=== PATIENT | male | born 1975 | race African-American/Black ===

== ENCOUNTER 2017-01-30 16:43 | Emergency (ER) | payer MEDICAID ==
[~2017-01-30] VITALS: Ht 182.9 cm; Wt 120.0 kg
[2017-01-30] MEDS ORDERED: SODIUM CHLORIDE 0.9% 1,000 ML IV ONE (16:53)
[2017-01-30 17:31] LABS: BG BASE EXCESS -0.6 mmol/L (-2.0-2.0); BG CARBOXYHEMOGLOBIN 0.4 % (0.5-1.5); BG DEOXYHEMOGLOBIN 13.8 % (0.0-5.0); BG FRACTION INSPIRED OXYGEN 21; BG HCO3 ACT 23.9 mmol/L (22.0-26.0); BG METHEMOGLOBIN 0.1 % (0.0-1.5); BG OXYGEN SATURATION 86.1 % (92.0-98.5); BG OXYHEMOGLOBIN 85.7 % (94.0-97.0); BG PCO2 38.8 mmHg (35.0-45.0); BG PH 7.407 (7.350-7.450); BG PO2 52.7 mmHg (75.0-100.0); BG SAMPLE SITE RIGHT RADIAL; BG VENT MODE ROOM AIR
[2017-01-30 17:43] LABS: BASOPHILS % 0.3 % (0.0-2.0); HEMOGLOBIN. 12.4 g/dL (14.0-18.0); MEAN CORPUSCULAR HEMOGLOBIN 30.4 pg (28.0-32.0); MEAN CORPUSCULAR HGB CONC 35.4 g/dL (31.0-37.0); MEAN CORPUSCULAR VOLUME 85.9 fL (80.0-94.0); MEAN PLATELET VOLUME 7.5 fl (7.4-10.4); MONOCYTES % 7.7 % (2.0-8.0); PLATELET 250 x1000/uL (130-400); RED BLOOD CELL COUNT 4.08 mill/uL (4.7-6.1); RED CELL DISTRIBUTION WIDTH 14.8 % (11.6-14.6); WHITE BLOOD COUNT 8.8 x1000/uL (4.5-11.0)
[2017-01-30 17:48] LABS: PARTIAL THROMBOPLASTIN TIME 25.7 sec (24.0-34.0); PROTHROMBIN TIME 10.8 sec
[2017-01-30 17:49] LABS: ALBUMIN 3.6 g/dL (3.4-5.0); ANION GAP 15; CALCIUM 8.5 mg/dL (8.5-10.1); CARBON DIOXIDE 27 mEq/L (21-32); CHLORIDE 91 mEq/L (98-107); ETHANOL BLOOD < 10 mg/dL; INDEX HEMOLYSI 1 (1-3); INDEX ICTERIC 1 (1-4); INDEX LIPEMIC 1 (1-3); UREA NITROGEN BLOOD 10 mg/dL (7-21)
[2017-01-30 17:51] LABS: AMMONIA 31 uMol/L (<32)
[2017-01-30 17:56] LABS: ACETAMINOPHEN < 2 ug/mL (10-30); ALANINE AMINOTRANSFERASE 30 IU/L (13-61); CREATINE KINASE 885 IU/L (39-308); NT PRO B-TYPE NATRIURETIC PEP 2723 pg/mL (5-125); TROPONIN I 0.19 ng/mL (0.00-0.04); eGFR > 60 mL/min (>60)
[2017-01-30 18:01] LABS: THYROID STIMULATING HORMONE 0.61 uIU/mL (0.36-3.74)
[2017-01-30] MEDS ORDERED: LORAZEPAM 2MG/ML CPJ IV ONE ×2 (18:45→22:15)
[2017-01-30] MEDS ORDERED: SODIUM CHLORIDE 0.9% 1000ML BAG (SEPSIS BOLUS) IV ONE (19:30)
[2017-01-30] MEDS ORDERED: ASPIRIN 300MG SUPP PR ONE (19:30)
[2017-01-30 20:20] LABS: GLUCOSE URINE NEGATIVE (NEGATIVE); KETONES URINE NEGATIVE (NEGATIVE); LEUKOCYTE ESTERASE URINE NEGATIVE (NEGATIVE); NITRITE URINE NEGATIVE (NEGATIVE); OCCULT BLOOD URINE NEGATIVE (NEGATIVE); PH URINE 6.5 (4.5-8.0); PROTEIN URINE NEGATIVE (NEGATIVE); SPECIFIC GRAVITY URINE 1.003 (1.005-1.030); UROBILINOGEN URINE 0.2 E.U./dL (0.2-1.0)
[2017-01-30 20:21] LABS: CLARITY URINE CLEAR (CLEAR); COLOR URINE YELLOW (YELLOW)
[2017-01-30 20:37] LABS: *AMPHETAMINES SCREEN URINE NEGATIVE (NEGATIVE); *BARBITURATES SCREEN URINE NEGATIVE (NEGATIVE); *BENZODIAZEPINES SCREEN URINE PRESUMTIVE POSITIVE (NEGATIVE); *COCAINE SCREEN URINE NEGATIVE (NEGATIVE); CANNABINOID URINE SCREEN NEGATIVE (NEGATIVE); ECSTASY MDMA SCREEN URINE NEGATIVE (NEGATIVE); METHADONE URINE SCREEN NEGATIVE (NEGATIVE); OPIATES URINE SCREEN NEGATIVE (NEGATIVE); PHENCYCLIDINE URINE SCREEN PRESUMTIVE POSITIVE (NEGATIVE)
[2017-01-31] MEDS ORDERED: DEXT 5%/0.45% NACL KCL 20MEQ/L 1,000 ML IV SCH (02:00)
[2017-01-31 05:55] LABS: CHLORIDE 98 mEq/L (98-107); INDEX HEMOLYSI 1 (1-3); INDEX ICTERIC 1 (1-4); INDEX LIPEMIC 1 (1-3)
[2017-01-31 06:03] LABS: ALBUMIN 3.3 g/dL (3.4-5.0); ANION GAP 12; CALCIUM 8.3 mg/dL (8.5-10.1); CARBON DIOXIDE 27 mEq/L (21-32); eGFR > 60 mL/min (>60)
[2017-01-31 06:19] LABS: ALANINE AMINOTRANSFERASE 29 IU/L (13-61); UREA NITROGEN BLOOD 9 mg/dL (7-21)
[2017-01-31 06:22] LABS: BASOPHILS % 0.3 % (0.0-2.0); EOSINOPHILS % 0.1 % (0.0-5.0); HEMATOCRIT. 37.8 % (42.0-52.0); HEMOGLOBIN. 13.2 g/dL (14.0-18.0); LYMPHOCYTES % 9.6 % (20.0-50.0); MEAN CORPUSCULAR HEMOGLOBIN 30.2 pg (28.0-32.0); MEAN CORPUSCULAR VOLUME 86.4 fL (80.0-94.0); MEAN PLATELET VOLUME 7.6 fl (7.4-10.4); MONOCYTES % 8.7 % (2.0-8.0); NEUTROPHILS % 81.3 % (40.0-76.0); PLATELET 245 x1000/uL (130-400); RED BLOOD CELL COUNT 4.38 mill/uL (4.7-6.1); RED CELL DISTRIBUTION WIDTH 14.8 % (11.6-14.6); WHITE BLOOD COUNT 10.9 x1000/uL (4.5-11.0)
[2017-01-31] MEDS ORDERED: OMEPRAZOLE 20MG CAPSULE EXTENDED RELEASE PO SCH (07:50)
[2017-01-31 09:00] VITALS: BP 138/93
== END 2017-01-31 11:18 | disposition left against medical advice (07) ==
LOC: ER 16:43
DX: F16.129 Hallucinogen abuse with intoxication, unspecified (principal); F16.10 Hallucinogen abuse, uncomplicated; M62.82 Rhabdomyolysis; R79.89 Other specified abnormal findings of blood chemistry; R61 Generalized hyperhidrosis; F17.290 Nicotine dependence, other tobacco product, uncomplicated
CPT/HCPCS: 36415; 36600; 70450; 71010; 72125; 80053; 80305; 80307; 80329; 81003; 82140; 82375; 82550; 82805; 83880; 84443; 84484; 85025; 85610; 85730; 86850; 86900; 86901; 93005; 96361; 96374; 96376; 99285; G0482; J2060; J7030; Z7610

== ENCOUNTER 2017-02-10 03:15 | Emergency (ER) | payer MEDICAID ==
[~2017-02-10] VITALS: Ht 182.9 cm; Wt 102.0 kg
[2017-02-10 06:16] LABS: BASOPHILS % 0.2 % (0.0-2.0); EOSINOPHILS % 0.1 % (0.0-5.0); HEMATOCRIT. 34.8 % (42.0-52.0); HEMOGLOBIN. 12.1 g/dL (14.0-18.0); LYMPHOCYTES % 9.2 % (20.0-50.0); MEAN CORPUSCULAR HEMOGLOBIN 30.3 pg (28.0-32.0); MEAN CORPUSCULAR HGB CONC 34.6 g/dL (31.0-37.0); MEAN CORPUSCULAR VOLUME 87.5 fL (80.0-94.0); MEAN PLATELET VOLUME 7.3 fl (7.4-10.4); MONOCYTES % 6.6 % (2.0-8.0); NEUTROPHILS % 83.9 % (40.0-76.0); PLATELET 257 x1000/uL (130-400); RED BLOOD CELL COUNT 3.98 mill/uL (4.7-6.1); RED CELL DISTRIBUTION WIDTH 15.2 % (11.6-14.6); WHITE BLOOD COUNT 12.3 x1000/uL (4.5-11.0)
[2017-02-10 06:17] LABS: CHLORIDE 103 mEq/L (98-107); INDEX HEMOLYSI 1 (1-3); INDEX ICTERIC 1 (1-4); INDEX LIPEMIC 1 (1-3)
[2017-02-10 06:23] LABS: ACETAMINOPHEN < 2 ug/mL (10-30); ANION GAP 12; CALCIUM 8.7 mg/dL (8.5-10.1); CARBON DIOXIDE 27 mEq/L (21-32); ETHANOL BLOOD < 10 mg/dL; UREA NITROGEN BLOOD 9 mg/dL (7-21); eGFR > 60 mL/min (>60)
[2017-02-10 07:00] LABS: *AMPHETAMINES SCREEN URINE NEGATIVE (NEGATIVE); *BARBITURATES SCREEN URINE NEGATIVE (NEGATIVE); *BENZODIAZEPINES SCREEN URINE NEGATIVE (NEGATIVE); *COCAINE SCREEN URINE NEGATIVE (NEGATIVE); CANNABINOID URINE SCREEN NEGATIVE (NEGATIVE); ECSTASY MDMA SCREEN URINE NEGATIVE (NEGATIVE); METHADONE URINE SCREEN NEGATIVE (NEGATIVE); OPIATES URINE SCREEN NEGATIVE (NEGATIVE); PHENCYCLIDINE URINE SCREEN PRESUMTIVE POSITIVE (NEGATIVE)
[2017-02-10 15:38] VITALS: BP 141/94
== END 2017-02-10 19:03 | disposition home or self-care (01) ==
LOC: ER 03:16
DX: T40.991A Poisoning by other psychodysleptics [hallucinogens], accidental (unintentional), initial encounter (principal); R41.82 Altered mental status, unspecified; F91.8 Other conduct disorders; Z78.1 Physical restraint status; Y92.488 Other paved roadways as the place of occurrence of the external cause
CPT/HCPCS: 36415; 80048; 80305; 80307; 80329; 85025; 99284; G0482; X7700; Z7610

== ENCOUNTER 2017-02-24 05:59 | Emergency (ER) | payer MEDICAID ==
[~2017-02-24] VITALS: Ht 177.8 cm; Wt 86.0 kg
[2017-02-24] MEDS ORDERED: OLANZAPINE 10 MG/VIAL IM STA (07:29)
[2017-02-24] MEDS ORDERED: LORAZEPAM 2MG/ML CPJ IV STA (07:29)
[2017-02-24] MEDS ORDERED: SODIUM CHLORIDE 0.9% 1,000 ML IV ONE (07:29)
[2017-02-24 07:50] LABS: BASOPHILS % 0.5 % (0.0-2.0); EOSINOPHILS % 0.3 % (0.0-5.0); HEMATOCRIT. 38.6 % (42.0-52.0); HEMOGLOBIN. 13.4 g/dL (14.0-18.0); LYMPHOCYTES % 14.4 % (20.0-50.0); MEAN CORPUSCULAR HEMOGLOBIN 30.3 pg (28.0-32.0); MEAN CORPUSCULAR VOLUME 87.5 fL (80.0-94.0); MEAN PLATELET VOLUME 7.6 fl (7.4-10.4); NEUTROPHILS % 77.8 % (40.0-76.0); PLATELET 288 x1000/uL (130-400); RED BLOOD CELL COUNT 4.42 mill/uL (4.7-6.1); RED CELL DISTRIBUTION WIDTH 14.7 % (11.6-14.6)
[2017-02-24 07:54] LABS: CHLORIDE 104 mEq/L (98-107)
[2017-02-24 08:03] LABS: CARBON DIOXIDE 29 mEq/L (21-32); ETHANOL BLOOD < 10 mg/dL
[2017-02-24 10:17] LABS: CLARITY URINE CLEAR (CLEAR); COLOR URINE YELLOW (YELLOW); GLUCOSE URINE NEGATIVE (NEGATIVE); KETONES URINE NEGATIVE (NEGATIVE); LEUKOCYTE ESTERASE URINE NEGATIVE (NEGATIVE); NITRITE URINE NEGATIVE (NEGATIVE); OCCULT BLOOD URINE NEGATIVE (NEGATIVE); PROTEIN URINE NEGATIVE (NEGATIVE); SPECIFIC GRAVITY URINE 1.006 (1.005-1.030); UROBILINOGEN URINE 0.2 E.U./dL (0.2-1.0)
[2017-02-24 10:54] LABS: *AMPHETAMINES SCREEN URINE NEGATIVE (NEGATIVE); *BARBITURATES SCREEN URINE NEGATIVE (NEGATIVE); *BENZODIAZEPINES SCREEN URINE NEGATIVE (NEGATIVE); *COCAINE SCREEN URINE NEGATIVE (NEGATIVE); CANNABINOID URINE SCREEN NEGATIVE (NEGATIVE); METHADONE URINE SCREEN NEGATIVE (NEGATIVE); OPIATES URINE SCREEN NEGATIVE (NEGATIVE); PHENCYCLIDINE URINE SCREEN PRESUMTIVE POSITIVE (NEGATIVE)
[2017-02-24] MEDS ORDERED: LORAZEPAM 1MG TABLET PO ONE (17:15)
[2017-02-24 17:35] VITALS: BP 172/101
== END 2017-02-24 17:51 | disposition home or self-care (01) ==
LOC: ER 06:10
DX: T40.991A Poisoning by other psychodysleptics [hallucinogens], accidental (unintentional), initial encounter (principal); R44.0 Auditory hallucinations; F16.188 Hallucinogen abuse with other hallucinogen-induced disorder; F10.10 Alcohol abuse, uncomplicated; Y92.89 Other specified places as the place of occurrence of the external cause; F17.210 Nicotine dependence, cigarettes, uncomplicated
CPT/HCPCS: 36415; 80053; 80305; 81003; 85025; 96361; 96372; 96374; 99285; G0482; J2060; J3490; Z7610; J7030

== ENCOUNTER 2017-03-02 01:08 | Emergency (ER) | payer MEDICAID ==
[~2017-03-02] VITALS: Ht 188 cm; Wt 100.0 kg
[2017-03-02] MEDS ORDERED: SODIUM CHLORIDE 0.9% 1,000 ML IV ONE (01:30)
[2017-03-02] MEDS ORDERED: DIPHENHYDRAMINE 50MG/ML VIAL IV ONE (04:00)
[2017-03-02] MEDS ORDERED: LORAZEPAM 2MG/ML CPJ IV ONE (04:00)
[2017-03-02 12:32] VITALS: BP 131/72
== END 2017-03-02 12:49 | disposition home or self-care (01) ==
LOC: ER 01:08
DX: T65.891A Toxic effect of other specified substances, accidental (unintentional), initial encounter (principal); Z88.8 Allergy status to other drugs, medicaments and biological substances; Y92.89 Other specified places as the place of occurrence of the external cause
CPT/HCPCS: 96361; 96374; 96375; 99285; J1200; J2060; J7030; Z7610

== ENCOUNTER 2017-03-06 02:10 | Emergency (ER) | payer MEDICAID ==
[2017-03-06 06:42] LABS: CARBON DIOXIDE 26 mEq/L (21-32); CHLORIDE 108 mEq/L (98-107); ETHANOL BLOOD < 10 mg/dL
[2017-03-06 06:48] LABS: BASOPHILS % 0.8 % (0.0-2.0); EOSINOPHILS % 0.6 % (0.0-5.0); HEMATOCRIT. 35.7 % (42.0-52.0); HEMOGLOBIN. 12.4 g/dL (14.0-18.0); LYMPHOCYTES % 18.9 % (20.0-50.0); MEAN CORPUSCULAR HEMOGLOBIN 30.3 pg (28.0-32.0); MEAN CORPUSCULAR VOLUME 87.2 fL (80.0-94.0); MEAN PLATELET VOLUME 7.4 fl (7.4-10.4); MONOCYTES % 7.4 % (2.0-8.0); NEUTROPHILS % 72.3 % (40.0-76.0); PLATELET 267 x1000/uL (130-400); RED BLOOD CELL COUNT 4.09 mill/uL (4.7-6.1); RED CELL DISTRIBUTION WIDTH 14.3 % (11.6-14.6)
[2017-03-06 07:35] LABS: *AMPHETAMINES SCREEN URINE NEGATIVE (NEGATIVE); *BARBITURATES SCREEN URINE NEGATIVE (NEGATIVE); *BENZODIAZEPINES SCREEN URINE NEGATIVE (NEGATIVE); *COCAINE SCREEN URINE NEGATIVE (NEGATIVE); CANNABINOID URINE SCREEN NEGATIVE (NEGATIVE); METHADONE URINE SCREEN NEGATIVE (NEGATIVE); OPIATES URINE SCREEN NEGATIVE (NEGATIVE); PHENCYCLIDINE URINE SCREEN PRESUMTIVE POSITIVE (NEGATIVE)
[2017-03-06 14:25] VITALS: BP 128/79
== END 2017-03-06 16:35 | disposition left against medical advice (07) ==
LOC: ER 02:10
DX: F20.0 Paranoid schizophrenia (principal); T40.991A Poisoning by other psychodysleptics [hallucinogens], accidental (unintentional), initial encounter; Y93.89 Activity, other specified; Y99.9 Unspecified external cause status; Y92.89 Other specified places as the place of occurrence of the external cause
CPT/HCPCS: 36415; 80048; 80305; 80307; 80329; 85025; 99284; G0482

== ENCOUNTER 2017-03-13 19:17 | Emergency (ER) | payer MEDICAID ==
[~2017-03-13] VITALS: Ht 185.4 cm; Wt 102.0 kg
[2017-03-13 19:19] VITALS: BP 146/88
== END 2017-03-13 21:00 | disposition left against medical advice (07) ==
LOC: ER 20:37
DX: Z53.21 Procedure and treatment not carried out due to patient leaving prior to being seen by health care provider (principal)

== ENCOUNTER 2017-03-13 21:14 | Emergency (ER) | payer MEDICAID ==
[~2017-03-13] VITALS: Ht 177.8 cm; Wt 104.0 kg
[2017-03-13] MEDS ORDERED: SODIUM CHLORIDE 0.9% 1,000 ML IV ONE (23:06)
[2017-03-13] MEDS ORDERED: DIPHENHYDRAMINE 50MG/ML VIAL IV ONE (23:15)
[2017-03-13] MEDS ORDERED: LORAZEPAM 2MG/ML CPJ IV ONE (23:15)
[2017-03-13] MEDS ORDERED: ONDANSETRON HCL 4MG/2ML VIAL IV ONE (23:15)
[2017-03-13] MEDS ORDERED: OLANZAPINE 10 MG/VIAL IM ONE (23:15)
[2017-03-13 23:31] LABS: BASOPHILS % 0.3 % (0.0-2.0); EOSINOPHILS % 0.1 % (0.0-5.0); HEMATOCRIT. 34.7 % (42.0-52.0); HEMOGLOBIN. 12.1 g/dL (14.0-18.0); LYMPHOCYTES % 12.1 % (20.0-50.0); MEAN CORPUSCULAR HEMOGLOBIN 29.7 pg (28.0-32.0); MEAN CORPUSCULAR VOLUME 85.5 fL (80.0-94.0); MEAN PLATELET VOLUME 7.6 fl (7.4-10.4); MONOCYTES % 6.9 % (2.0-8.0); NEUTROPHILS % 80.6 % (40.0-76.0); PLATELET 253 x1000/uL (130-400); RED BLOOD CELL COUNT 4.06 mill/uL (4.7-6.1); RED CELL DISTRIBUTION WIDTH 14.2 % (11.6-14.6)
[2017-03-13 23:34] LABS: CHLORIDE 104 mEq/L (98-107)
[2017-03-13 23:43] LABS: CARBON DIOXIDE 28 mEq/L (21-32); ETHANOL BLOOD < 10 mg/dL
[2017-03-14 00:32] LABS: *AMPHETAMINES SCREEN URINE NEGATIVE (NEGATIVE); *BARBITURATES SCREEN URINE NEGATIVE (NEGATIVE); *BENZODIAZEPINES SCREEN URINE NEGATIVE (NEGATIVE); *COCAINE SCREEN URINE NEGATIVE (NEGATIVE); CANNABINOID URINE SCREEN NEGATIVE (NEGATIVE); METHADONE URINE SCREEN NEGATIVE (NEGATIVE); OPIATES URINE SCREEN NEGATIVE (NEGATIVE); PHENCYCLIDINE URINE SCREEN PRESUMTIVE POSITIVE (NEGATIVE)
[2017-03-14 09:55] VITALS: BP 139/78
== END 2017-03-14 10:11 | disposition home or self-care (01) ==
LOC: ER 22:37
DX: T40.991A Poisoning by other psychodysleptics [hallucinogens], accidental (unintentional), initial encounter (principal); F12.10 Cannabis abuse, uncomplicated; Y92.89 Other specified places as the place of occurrence of the external cause
CPT/HCPCS: 36415; 80053; 80305; 80307; 80329; 85025; 96361; 96372; 96374; 96375; 99291; G0482; J1200; J2060; J2405; J3490; J7030; Z7610

== ENCOUNTER 2017-03-19 21:27 | Emergency (ER) | payer MEDICAID ==
[~2017-03-19] VITALS: Ht 182.9 cm; Wt 95.0 kg
[2017-03-20 02:04] VITALS: BP 128/76
== END 2017-03-20 04:21 | disposition home or self-care (01) ==
LOC: ER 21:49
DX: Z00.8 Encounter for other general examination (principal); F20.9 Schizophrenia, unspecified; F31.9 Bipolar disorder, unspecified; F17.210 Nicotine dependence, cigarettes, uncomplicated; F16.10 Hallucinogen abuse, uncomplicated
CPT/HCPCS: 99283

== ENCOUNTER 2017-04-03 03:45 | Emergency (ER) | payer MEDICAID ==
[~2017-04-03] VITALS: Ht 182.9 cm; Wt 91.0 kg
[2017-04-03] MEDS ORDERED: IBUPROFEN 600MG TABLET PO ONE (04:00)
[2017-04-03 04:06] VITALS: BP 174/100
== END 2017-04-03 04:36 | disposition home or self-care (01) ==
LOC: ER 03:54
DX: R51 Headache (principal)
CPT/HCPCS: 99283; Z7610

== ENCOUNTER 2017-04-03 04:40 | Emergency (ER) | payer MEDICAID ==
[~2017-04-03] VITALS: Ht 177.8 cm; Wt 100.0 kg
[2017-04-03] MEDS ORDERED: IBUPROFEN 600MG TABLET PO ONE (09:15)
[2017-04-03 10:12] VITALS: BP 125/84
== END 2017-04-03 10:15 | disposition home or self-care (01) ==
LOC: ER 04:41
DX: B35.3 Tinea pedis (principal); F16.10 Hallucinogen abuse, uncomplicated
CPT/HCPCS: 99283

== ENCOUNTER 2017-04-05 04:04 | Emergency (ER) | payer MEDICAID ==
[~2017-04-05] VITALS: Ht 182.9 cm; Wt 95.0 kg
[2017-04-05 09:30] VITALS: BP 126/96
[2017-04-05] MEDS ORDERED: ACETAMINOPHEN 500MG TABLET PO ONE (10:00)
== END 2017-04-05 10:03 | disposition home or self-care (01) ==
LOC: ER 04:07
DX: B35.3 Tinea pedis (principal); R51 Headache; F16.10 Hallucinogen abuse, uncomplicated
CPT/HCPCS: 99283

== ENCOUNTER 2017-04-08 05:38 | Emergency (ER) | payer MEDICAID ==
[~2017-04-08] VITALS: Ht 180.3 cm; Wt 96.0 kg
[2017-04-08 06:59] LABS: BASOPHILS % 0.4 % (0.0-2.0); EOSINOPHILS % 0.5 % (0.0-5.0); HEMATOCRIT. 36.6 % (42.0-52.0); HEMOGLOBIN. 12.9 g/dL (14.0-18.0); LYMPHOCYTES % 22.3 % (20.0-50.0); MEAN CORPUSCULAR HEMOGLOBIN 30.1 pg (28.0-32.0); MEAN CORPUSCULAR VOLUME 85.3 fL (80.0-94.0); MEAN PLATELET VOLUME 7.5 fl (7.4-10.4); MONOCYTES % 9.4 % (2.0-8.0); NEUTROPHILS % 67.4 % (40.0-76.0); PLATELET 259 x1000/uL (130-400); RED BLOOD CELL COUNT 4.29 mill/uL (4.7-6.1); RED CELL DISTRIBUTION WIDTH 14.5 % (11.6-14.6)
[2017-04-08 07:10] LABS: CARBON DIOXIDE 29 mEq/L (21-32); CHLORIDE 106 mEq/L (98-107); ETHANOL BLOOD < 10 mg/dL
[2017-04-08 08:09] LABS: *AMPHETAMINES SCREEN URINE NEGATIVE (NEGATIVE); *BARBITURATES SCREEN URINE NEGATIVE (NEGATIVE); *BENZODIAZEPINES SCREEN URINE NEGATIVE (NEGATIVE); *COCAINE SCREEN URINE NEGATIVE (NEGATIVE); CANNABINOID URINE SCREEN NEGATIVE (NEGATIVE); METHADONE URINE SCREEN NEGATIVE (NEGATIVE); OPIATES URINE SCREEN NEGATIVE (NEGATIVE); PHENCYCLIDINE URINE SCREEN PRESUMTIVE POSITIVE (NEGATIVE)
[2017-04-08 10:23] VITALS: BP 132/85
== END 2017-04-08 11:07 | disposition home or self-care (01) ==
LOC: ER 05:47
DX: T40.991A Poisoning by other psychodysleptics [hallucinogens], accidental (unintentional), initial encounter (principal); G92 Toxic encephalopathy; F20.0 Paranoid schizophrenia; F17.210 Nicotine dependence, cigarettes, uncomplicated; Y92.018 Other place in single-family (private) house as the place of occurrence of the external cause
CPT/HCPCS: 36415; 80048; 80305; 85025; 99284; G0482

== ENCOUNTER 2017-04-09 01:17 | Emergency (ER) | payer MEDICAID ==
[~2017-04-09] VITALS: Ht 177.8 cm; Wt 81.0 kg
[2017-04-09] MEDS ORDERED: LORAZEPAM 1MG TABLET PO ONE (07:00)
[2017-04-09] MEDS ORDERED: OLANZAPINE 10 MG/VIAL IM ONE (07:00)
[2017-04-09 07:12] LABS: BASOPHILS % 0.5 % (0.0-2.0); EOSINOPHILS % 0.7 % (0.0-5.0); HEMATOCRIT. 39.3 % (42.0-52.0); HEMOGLOBIN. 13.6 g/dL (14.0-18.0); MEAN CORPUSCULAR HEMOGLOBIN 29.9 pg (28.0-32.0); MEAN CORPUSCULAR VOLUME 86.5 fL (80.0-94.0); MEAN PLATELET VOLUME 7.2 fl (7.4-10.4); NEUTROPHILS % 70.8 % (40.0-76.0); PLATELET 298 x1000/uL (130-400); RED BLOOD CELL COUNT 4.54 mill/uL (4.7-6.1); RED CELL DISTRIBUTION WIDTH 14.3 % (11.6-14.6)
[2017-04-09 07:22] LABS: CARBON DIOXIDE 30 mEq/L (21-32); CHLORIDE 102 mEq/L (98-107); ETHANOL BLOOD < 10 mg/dL
[2017-04-09 07:46] LABS: CLARITY URINE CLEAR (CLEAR); COLOR URINE YELLOW (YELLOW); KETONES URINE NEGATIVE (NEGATIVE); LEUKOCYTE ESTERASE URINE NEGATIVE (NEGATIVE); NITRITE URINE NEGATIVE (NEGATIVE); OCCULT BLOOD URINE NEGATIVE (NEGATIVE); PH URINE 6.5 (4.5-8.0); PROTEIN URINE NEGATIVE (NEGATIVE); SPECIFIC GRAVITY URINE 1.006 (1.005-1.030); UROBILINOGEN URINE 0.2 E.U./dL (0.2-1.0)
[2017-04-09 07:50] LABS: *AMPHETAMINES SCREEN URINE NEGATIVE (NEGATIVE); *BARBITURATES SCREEN URINE NEGATIVE (NEGATIVE); *BENZODIAZEPINES SCREEN URINE NEGATIVE (NEGATIVE); *COCAINE SCREEN URINE NEGATIVE (NEGATIVE); CANNABINOID URINE SCREEN NEGATIVE (NEGATIVE); METHADONE URINE SCREEN NEGATIVE (NEGATIVE); OPIATES URINE SCREEN NEGATIVE (NEGATIVE); PHENCYCLIDINE URINE SCREEN PRESUMTIVE POSITIVE (NEGATIVE)
[2017-04-09 11:25] VITALS: BP 122/79
== END 2017-04-09 13:06 | disposition home or self-care (01) ==
LOC: ER 01:28
DX: F16.10 Hallucinogen abuse, uncomplicated (principal); R44.0 Auditory hallucinations; F99 Mental disorder, not otherwise specified
CPT/HCPCS: 36415; 80053; 80305; 80307; 80329; 81003; 85025; 96372; 99284; G0482; J3490; Z7610

== ENCOUNTER 2017-04-21 01:22 | Emergency (ER) | payer MEDICAID ==
[~2017-04-21] VITALS: Ht 172.7 cm; Wt 100.0 kg
[2017-04-21 01:25] VITALS: BP 147/87
== END 2017-04-21 03:15 | disposition left against medical advice (07) ==
LOC: ER 01:32
DX: Z53.21 Procedure and treatment not carried out due to patient leaving prior to being seen by health care provider (principal)

== ENCOUNTER 2017-04-21 07:02 | Emergency (ER) | payer MEDICAID ==
[~2017-04-21] VITALS: Ht 177.8 cm; Wt 95.0 kg
[2017-04-21 07:32] VITALS: BP 148/90
== END 2017-04-21 09:22 | disposition left against medical advice (07) ==
LOC: ER 08:26
DX: Z53.21 Procedure and treatment not carried out due to patient leaving prior to being seen by health care provider (principal)

== ENCOUNTER 2017-05-09 07:38 | Emergency (ER) | payer MEDICAID ==
[~2017-05-09] VITALS: Ht 180.3 cm; Wt 110.0 kg
[2017-05-09 07:40] VITALS: BP 158/96
== END 2017-05-09 09:54 | disposition left against medical advice (07) ==
LOC: ER 07:38
DX: R69 Illness, unspecified (principal); Z53.21 Procedure and treatment not carried out due to patient leaving prior to being seen by health care provider

== ENCOUNTER 2017-05-12 02:21 | Emergency (ER) | payer MEDICAID ==
[~2017-05-12] VITALS: Ht 185.4 cm; Wt 102.0 kg
[2017-05-12 03:00] VITALS: BP 157/100
== END 2017-05-12 03:10 | disposition home or self-care (01) ==
LOC: ER 02:21
DX: F16.10 Hallucinogen abuse, uncomplicated (principal); B35.3 Tinea pedis; I10 Essential (primary) hypertension; F99 Mental disorder, not otherwise specified
CPT/HCPCS: 99283; Z7610

== ENCOUNTER 2017-05-17 01:56 | Emergency (ER) | payer MEDICAID ==
[~2017-05-17] VITALS: Ht 175.3 cm; Wt 100.0 kg
[2017-05-17 06:00] VITALS: BP 135/89
[2017-05-17] MEDS ORDERED: LORAZEPAM 0.5MG TABLET PO ONE (06:15)
== END 2017-05-17 07:14 | disposition home or self-care (01) ==
LOC: ER 01:56
DX: F16.129 Hallucinogen abuse with intoxication, unspecified (principal); I10 Essential (primary) hypertension; F17.200 Nicotine dependence, unspecified, uncomplicated; F11.10 Opioid abuse, uncomplicated
CPT/HCPCS: 99283

== ENCOUNTER 2017-08-14 15:00 | Emergency (ER) | payer MEDICAID ==
[~2017-08-14] VITALS: Ht 177.8 cm; Wt 114.0 kg
[2017-08-14] MEDS ORDERED: SODIUM CHLORIDE 0.9% 1,000 ML IV ONE (15:13)
[2017-08-14] MEDS ORDERED: LORAZEPAM 2MG/ML CPJ IV ONE (15:30)
[2017-08-14 15:58] LABS: BASOPHILS % 0.4 % (0.0-2.0); EOSINOPHILS % 0.1 % (0.0-5.0); HEMATOCRIT. 40.8 % (42.0-52.0); HEMOGLOBIN. 14.4 g/dL (14.0-18.0); LYMPHOCYTES % 23.5 % (20.0-50.0); MEAN CORPUSCULAR HEMOGLOBIN 30.7 pg (28.0-32.0); MEAN CORPUSCULAR VOLUME 86.6 fL (80.0-94.0); MEAN PLATELET VOLUME 7.6 fl (7.4-10.4); MONOCYTES % 7.9 % (2.0-8.0); NEUTROPHILS % 68.1 % (40.0-76.0); PLATELET 257 x1000/uL (130-400); RED BLOOD CELL COUNT 4.71 mill/uL (4.7-6.1); RED CELL DISTRIBUTION WIDTH 15.5 % (11.6-14.6)
[2017-08-14 16:04] LABS: CARBON DIOXIDE 24 mEq/L (21-32); CHLORIDE 101 mEq/L (98-107); ETHANOL BLOOD 50 mg/dL
[2017-08-14 20:49] LABS: GLUCOSE URINE NEGATIVE (NEGATIVE); KETONES URINE NEGATIVE (NEGATIVE); LEUKOCYTE ESTERASE URINE NEGATIVE (NEGATIVE); NITRITE URINE NEGATIVE (NEGATIVE); OCCULT BLOOD URINE NEGATIVE (NEGATIVE); PROTEIN URINE NEGATIVE (NEGATIVE); SPECIFIC GRAVITY URINE 1.015 (1.005-1.030)
[2017-08-14 20:55] LABS: CLARITY URINE CLEAR (CLEAR); COLOR URINE DARK YELLOW (YELLOW)
[2017-08-14 20:58] LABS: *AMPHETAMINES SCREEN URINE NEGATIVE (NEGATIVE); *BARBITURATES SCREEN URINE NEGATIVE (NEGATIVE); *BENZODIAZEPINES SCREEN URINE NEGATIVE (NEGATIVE); *COCAINE SCREEN URINE NEGATIVE (NEGATIVE); CANNABINOID URINE SCREEN NEGATIVE (NEGATIVE); METHADONE URINE SCREEN NEGATIVE (NEGATIVE); OPIATES URINE SCREEN NEGATIVE (NEGATIVE); PHENCYCLIDINE URINE SCREEN PRESUMTIVE POSITIVE (NEGATIVE)
[2017-08-14 21:56] VITALS: BP 129/78
== END 2017-08-14 22:14 | disposition home or self-care (01) ==
LOC: ER 15:16
DX: G93.40 Encephalopathy, unspecified (principal); F10.129 Alcohol abuse with intoxication, unspecified; E87.1 Hypo-osmolality and hyponatremia; F17.200 Nicotine dependence, unspecified, uncomplicated; R74.0 Nonspecific elevation of levels of transaminase and lactic acid dehydrogenase [LDH]; F19.10 Other psychoactive substance abuse, uncomplicated; F12.10 Cannabis abuse, uncomplicated
CPT/HCPCS: 36415; 70450; 80053; 80305; 80307; 80329; 81003; 85025; 96361; 96374; 99285; G0482; J2060; J7030

== ENCOUNTER 2017-08-14 22:19 | Emergency (ER) | payer MEDICAID ==
[~2017-08-14] VITALS: Ht 182.9 cm; Wt 93.0 kg
[2017-08-14 22:24] VITALS: BP 140/97
== END 2017-08-14 23:19 | disposition home or self-care (01) ==
LOC: ER 22:25
DX: B35.3 Tinea pedis (principal); F17.200 Nicotine dependence, unspecified, uncomplicated
CPT/HCPCS: 99282

== ENCOUNTER 2017-08-18 22:33 | Emergency (ER) | payer MEDICAID ==
[~2017-08-18] VITALS: Ht 182.9 cm; Wt 109.0 kg
[2017-08-18] MEDS ORDERED: SODIUM CHLORIDE 0.9% 1,000 ML IV ONE (23:06)
[2017-08-18] MEDS ORDERED: LORAZEPAM 2MG/ML CPJ IV ONE (23:15)
[2017-08-18 23:20] LABS: BASOPHILS % 0.3 % (0.0-2.0); EOSINOPHILS % 0.8 % (0.0-5.0); HEMATOCRIT. 35.9 % (42.0-52.0); HEMOGLOBIN. 12.8 g/dL (14.0-18.0); MEAN CORPUSCULAR HEMOGLOBIN 31.2 pg (28.0-32.0); MEAN CORPUSCULAR VOLUME 87.7 fL (80.0-94.0); MEAN PLATELET VOLUME 7.3 fl (7.4-10.4); MONOCYTES % 7.6 % (2.0-8.0); NEUTROPHILS % 61.3 % (40.0-76.0); PLATELET 178 x1000/uL (130-400); RED CELL DISTRIBUTION WIDTH 15.3 % (11.6-14.6)
[2017-08-18 23:27] LABS: CHLORIDE 104 mEq/L (98-107)
[2017-08-18 23:32] LABS: CARBON DIOXIDE 29 mEq/L (21-32); ETHANOL BLOOD < 10 mg/dL
[2017-08-19 00:31] LABS: CLARITY URINE CLEAR (CLEAR); COLOR URINE YELLOW (YELLOW); GLUCOSE URINE NEGATIVE (NEGATIVE); KETONES URINE NEGATIVE (NEGATIVE); LEUKOCYTE ESTERASE URINE NEGATIVE (NEGATIVE); NITRITE URINE NEGATIVE (NEGATIVE); OCCULT BLOOD URINE NEGATIVE (NEGATIVE); PH URINE 6.5 (4.5-8.0); PROTEIN URINE NEGATIVE (NEGATIVE); SPECIFIC GRAVITY URINE 1.011 (1.005-1.030)
[2017-08-19 00:39] LABS: *AMPHETAMINES SCREEN URINE NEGATIVE (NEGATIVE); *BARBITURATES SCREEN URINE NEGATIVE (NEGATIVE); *BENZODIAZEPINES SCREEN URINE NEGATIVE (NEGATIVE); *COCAINE SCREEN URINE NEGATIVE (NEGATIVE); CANNABINOID URINE SCREEN NEGATIVE (NEGATIVE); METHADONE URINE SCREEN NEGATIVE (NEGATIVE); OPIATES URINE SCREEN NEGATIVE (NEGATIVE); PHENCYCLIDINE URINE SCREEN PRESUMTIVE POSITIVE (NEGATIVE)
[2017-08-19 04:50] VITALS: BP 127/91
== END 2017-08-19 04:53 | disposition home or self-care (01) ==
LOC: ER 22:33
DX: F16.20 Hallucinogen dependence, uncomplicated (principal); R51 Headache; R03.0 Elevated blood-pressure reading, without diagnosis of hypertension; D64.9 Anemia, unspecified
CPT/HCPCS: 36415; 80048; 80305; 81003; 82962; 85025; 96361; 96374; 99285; G0482; J2060; J7030; Z7610

== ENCOUNTER 2017-08-21 05:02 | Emergency (ER) | payer MEDICAID ==
[~2017-08-21] VITALS: Ht 177.8 cm; Wt 108.0 kg
[2017-08-21] MEDS ORDERED: ACETAMINOPHEN 500MG TABLET PO ONE (06:45)
[2017-08-21 07:04] VITALS: BP 133/88
== END 2017-08-21 07:20 | disposition home or self-care (01) ==
LOC: ER 05:02
DX: F16.129 Hallucinogen abuse with intoxication, unspecified (principal); K59.00 Constipation, unspecified; F17.200 Nicotine dependence, unspecified, uncomplicated; F16.10 Hallucinogen abuse, uncomplicated
CPT/HCPCS: 99283; Z7610

== ENCOUNTER 2017-08-22 16:27 | Emergency (ER) | payer MEDICAID ==
[~2017-08-22] VITALS: Ht 175.3 cm; Wt 98.0 kg
[2017-08-22 16:41] VITALS: BP 144/96
== END 2017-08-22 18:17 | disposition left against medical advice (07) ==
LOC: ER 16:36
DX: T40.991A Poisoning by other psychodysleptics [hallucinogens], accidental (unintentional), initial encounter (principal); Z53.21 Procedure and treatment not carried out due to patient leaving prior to being seen by health care provider; Y92.89 Other specified places as the place of occurrence of the external cause

== ENCOUNTER 2017-08-23 03:42 | Emergency (ER) | payer MEDICAID ==
[~2017-08-23] VITALS: Ht 177.8 cm; Wt 73.0 kg
[2017-08-23 08:01] VITALS: BP 138/99
== END 2017-08-23 09:16 | disposition left against medical advice (07) ==
LOC: ER 03:44
DX: T65.91XA Toxic effect of unspecified substance, accidental (unintentional), initial encounter (principal); Y92.89 Other specified places as the place of occurrence of the external cause
CPT/HCPCS: 99283

== ENCOUNTER 2017-08-24 20:19 | Emergency (ER) | payer MEDICAID ==
[~2017-08-24] VITALS: Ht 185.4 cm; Wt 103.0 kg
[2017-08-24 20:20] VITALS: BP 137/84
== END 2017-08-24 21:05 | disposition home or self-care (01) ==
LOC: ER 20:35
DX: F16.129 Hallucinogen abuse with intoxication, unspecified (principal); F17.210 Nicotine dependence, cigarettes, uncomplicated; F16.10 Hallucinogen abuse, uncomplicated
CPT/HCPCS: 99283

== ENCOUNTER 2017-08-25 07:57 | Emergency (ER) | payer MEDICAID ==
[~2017-08-25] VITALS: Ht 172.7 cm; Wt 92.0 kg
[2017-08-25] MEDS ORDERED: SODIUM CHLORIDE 0.9% 1,000 ML IV ONE (09:30)
[2017-08-25 09:50] LABS: BASOPHILS % 0.4 % (0.0-2.0); EOSINOPHILS % 0.6 % (0.0-5.0); HEMATOCRIT. 37.5 % (42.0-52.0); HEMOGLOBIN. 13.1 g/dL (14.0-18.0); LYMPHOCYTES % 19.8 % (20.0-50.0); MEAN CORPUSCULAR VOLUME 88.8 fL (80.0-94.0); MEAN PLATELET VOLUME 7.5 fl (7.4-10.4); NEUTROPHILS % 72.2 % (40.0-76.0); PLATELET 178 x1000/uL (130-400); RED BLOOD CELL COUNT 4.22 mill/uL (4.7-6.1)
[2017-08-25 09:56] LABS: CHLORIDE 106 mEq/L (98-107)
[2017-08-25 10:04] LABS: CARBON DIOXIDE 26 mEq/L (21-32); ETHANOL BLOOD < 10 mg/dL
[2017-08-25 10:50] VITALS: BP 146/90
[2017-08-25 10:52] LABS: CLARITY URINE CLEAR (CLEAR); COLOR URINE YELLOW (YELLOW); GLUCOSE URINE NEGATIVE (NEGATIVE); KETONES URINE NEGATIVE (NEGATIVE); LEUKOCYTE ESTERASE URINE NEGATIVE (NEGATIVE); NITRITE URINE NEGATIVE (NEGATIVE); OCCULT BLOOD URINE NEGATIVE (NEGATIVE); PH URINE 6.5 (4.5-8.0); PROTEIN URINE NEGATIVE (NEGATIVE); SPECIFIC GRAVITY URINE 1.007 (1.005-1.030); UROBILINOGEN URINE 0.2 E.U./dL (0.2-1.0)
[2017-08-25 11:27] LABS: *AMPHETAMINES SCREEN URINE NEGATIVE (NEGATIVE); *BARBITURATES SCREEN URINE NEGATIVE (NEGATIVE); *BENZODIAZEPINES SCREEN URINE NEGATIVE (NEGATIVE); *COCAINE SCREEN URINE NEGATIVE (NEGATIVE); CANNABINOID URINE SCREEN NEGATIVE (NEGATIVE); METHADONE URINE SCREEN NEGATIVE (NEGATIVE); OPIATES URINE SCREEN NEGATIVE (NEGATIVE); PHENCYCLIDINE URINE SCREEN PRESUMTIVE POSITIVE (NEGATIVE)
== END 2017-08-25 12:00 | disposition home or self-care (01) ==
LOC: ER 08:06
DX: F19.90 Other psychoactive substance use, unspecified, uncomplicated (principal)
CPT/HCPCS: 36415; 80053; 80305; 81003; 85025; 96360; 96361; 99285; G0482; J7030

== ENCOUNTER 2017-10-13 02:23 | Emergency (ER) | payer MEDICAID ==
[~2017-10-13] VITALS: Ht 172.7 cm; Wt 76.5 kg
[2017-10-13 02:25] VITALS: BP 142/84
== END 2017-10-13 11:36 | disposition left against medical advice (07) ==
LOC: ER 02:23
DX: G47.00 Insomnia, unspecified (principal); Z53.21 Procedure and treatment not carried out due to patient leaving prior to being seen by health care provider

== ENCOUNTER 2017-12-27 02:44 | Emergency (ER) | payer MEDICAID ==
[~2017-12-27] VITALS: Ht 177.8 cm; Wt 95.0 kg
[2017-12-27 02:45] VITALS: BP 160/84
== END 2017-12-27 07:35 | disposition left against medical advice (07) ==
LOC: ER 02:52
DX: R51 Headache (principal); Z53.21 Procedure and treatment not carried out due to patient leaving prior to being seen by health care provider

== ENCOUNTER 2020-04-20 03:55 | Emergency (ER) | payer MEDICAID ==
[~2020-04-20] VITALS: Ht 177.8 cm; Wt 105.0 kg
[2020-04-20] MEDS ORDERED: KETOROLAC 30MG/ML VIAL IV STA (05:02)
[2020-04-20] MEDS ORDERED: ONDANSETRON HCL 4MG/2ML INJ IV STA (05:02)
[2020-04-20] MEDS ORDERED: FAMOTIDINE 20MG/2ML VIAL IV STA (05:02)
[2020-04-20] MEDS ORDERED: SODIUM CHLORIDE 0.9% 1,000 ML IV ONE (05:02)
[2020-04-20 05:40] LABS: BASOPHILS % 0.5 % (0.0-2.0); EOSINOPHILS % 0.3 % (0.0-5.0); HEMATOCRIT. 35.7 % (42.0-52.0); HEMOGLOBIN. 12.6 g/dL (14.0-18.0); LYMPHOCYTES % 20.4 % (20.0-50.0); MEAN CORPUSCULAR VOLUME 84.7 fL (80.0-94.0); MEAN PLATELET VOLUME 6.6 fl (7.4-10.4); NEUTROPHILS % 72.8 % (40.0-76.0); PLATELET 415 x1000/uL (130-400); RED BLOOD CELL COUNT 4.22 mill/uL (4.7-6.1); RED CELL DISTRIBUTION WIDTH 15.3 % (11.6-14.6)
[2020-04-20 05:47] LABS: CHLORIDE 105 mEq/L (98-107)
[2020-04-20 05:50] LABS: CLARITY URINE CLOUDY (CLEAR); COLOR URINE DARK YELLOW (YELLOW); KETONES URINE TRACE (NEGATIVE); LEUKOCYTE ESTERASE URINE NEGATIVE (NEGATIVE); NITRITE URINE NEGATIVE (NEGATIVE); OCCULT BLOOD URINE NEGATIVE (NEGATIVE); PROTEIN URINE 1+ (NEGATIVE); SPECIFIC GRAVITY URINE 1.028 (1.005-1.030)
[2020-04-20 08:04] VITALS: BP 147/81
== END 2020-04-20 08:05 | disposition home or self-care (01) ==
LOC: ER 04:12
DX: R10.30 Lower abdominal pain, unspecified (principal); R11.2 Nausea with vomiting, unspecified; I10 Essential (primary) hypertension; E78.00 Pure hypercholesterolemia, unspecified; F16.10 Hallucinogen abuse, uncomplicated
CPT/HCPCS: 36415; 71045; 74176; 80053; 81003; 83690; 84484; 85025; 93005; 96361; 96374; 96375; 99285; J1885; J2405; J3490; J7030

== ENCOUNTER 2020-05-04 01:26 | Emergency (ER) | payer MEDICAID ==
[~2020-05-04] VITALS: Ht 180.3 cm; Wt 109.0 kg
[2020-05-04] MEDS ORDERED: LORAZEPAM 2MG/ML CPJ IV STA (01:55)
[2020-05-04] MEDS ORDERED: SODIUM CHLORIDE 0.9% 1,000 ML IV ONE (01:55)
[2020-05-04 02:20] LABS: CHLORIDE 101 mEq/L (98-107)
[2020-05-04 02:23] LABS: BASOPHILS % 0.3 % (0.0-2.0); EOSINOPHILS % 0.4 % (0.0-5.0); HEMOGLOBIN. 13.3 g/dL (14.0-18.0); MEAN CORPUSCULAR HEMOGLOBIN 29.8 pg (28.0-32.0); MEAN CORPUSCULAR VOLUME 87.6 fL (80.0-94.0); MEAN PLATELET VOLUME 7.3 fl (7.4-10.4); MONOCYTES % 5.2 % (2.0-8.0); NEUTROPHILS % 80.1 % (40.0-76.0); PLATELET 298 x1000/uL (130-400); RED BLOOD CELL COUNT 4.45 mill/uL (4.7-6.1); RED CELL DISTRIBUTION WIDTH 16.5 % (11.6-14.6)
[2020-05-04 02:24] LABS: ETHANOL BLOOD 74 mg/dL
[2020-05-04 03:12] LABS: *AMPHETAMINES SCREEN URINE NEGATIVE (NEGATIVE); *BARBITURATES SCREEN URINE NEGATIVE (NEGATIVE); *BENZODIAZEPINES SCREEN URINE NEGATIVE (NEGATIVE); *COCAINE SCREEN URINE NEGATIVE (NEGATIVE); METHADONE URINE SCREEN NEGATIVE (NEGATIVE); OPIATES URINE SCREEN NEGATIVE (NEGATIVE)
[2020-05-04 03:13] LABS: CANNABINOID URINE SCREEN NEGATIVE (NEGATIVE); PHENCYCLIDINE URINE SCREEN PRESUMTIVE POSITIVE (NEGATIVE)
[2020-05-04 05:25] VITALS: BP 143/94
== END 2020-05-04 07:09 | disposition home or self-care (01) ==
LOC: ER 01:26
DX: T40.991A Poisoning by other psychodysleptics [hallucinogens], accidental (unintentional), initial encounter (principal); G92 Toxic encephalopathy; I10 Essential (primary) hypertension; E78.00 Pure hypercholesterolemia, unspecified; Y92.018 Other place in single-family (private) house as the place of occurrence of the external cause
CPT/HCPCS: 36415; 80053; 80305; 80320; 85025; 93005; 96374; 99284; J2060; J7030; G0480

== ENCOUNTER 2020-05-04 07:54 | Emergency (ER) | payer MEDICAID ==
[~2020-05-04] VITALS: Ht 177.8 cm; Wt 105.0 kg
[2020-05-04] MEDS ORDERED: ACETAMINOPHEN 325MG TABLET PO STA (08:22)
[2020-05-04] MEDS ORDERED: MAGNESIUM/ALUMINUM HYDROXIDE/SIMETHICONE 30ML UDC PO ONE (08:30)
[2020-05-04] MEDS ORDERED: FAMOTIDINE 20MG TABLET PO ONE (08:30)
[2020-05-04 09:09] VITALS: BP 135/77
== END 2020-05-04 09:50 | disposition home or self-care (01) ==
LOC: ER 07:54
DX: R10.13 Epigastric pain (principal); K21.9 Gastro-esophageal reflux disease without esophagitis; I10 Essential (primary) hypertension; E78.00 Pure hypercholesterolemia, unspecified; Z87.828 Personal history of other (healed) physical injury and trauma
CPT/HCPCS: 99284

== ENCOUNTER 2020-12-02 21:01 | Emergency (ER) | payer SELFPAY ==
[~2020-12-02] VITALS: Ht 182.9 cm; Wt 100.0 kg
[2020-12-02 23:37] LABS: HEMATOCRIT. 34.1 % (42.0-52.0); HEMOGLOBIN. 11.8 g/dL (14.0-18.0); LYMPHOCYTES % 23.8 % (20.0-50.0); MEAN CORPUSCULAR HEMOGLOBIN 28.8 pg (28.0-32.0); MEAN CORPUSCULAR VOLUME 83.4 fL (80.0-94.0); MEAN PLATELET VOLUME 7.3 fl (7.4-10.4); MONOCYTES % 9.3 % (2.0-8.0); NEUTROPHILS % 64.9 % (40.0-76.0); PLATELET 311 x1000/uL (130-400); RED BLOOD CELL COUNT 4.09 mill/uL (4.7-6.1); RED CELL DISTRIBUTION WIDTH 16.5 % (11.6-14.6)
[2020-12-02 23:44] LABS: CHLORIDE 108 mEq/L (98-107)
[2020-12-02 23:46] LABS: PROTHROMBIN TIME 10.8 sec (9.6-11.0)
[2020-12-03] MEDS ORDERED: SODIUM CHLORIDE 0.9% 1,000 ML IV ONE (01:00)
[2020-12-03] MEDS ORDERED: MAGNESIUM/ALUMINUM HYDROXIDE/SIMETHICONE 30ML UDC PO ONE (05:45)
[2020-12-03 06:00] VITALS: BP 120/81
== END 2020-12-03 06:35 | disposition home or self-care (01) ==
LOC: ER 21:01
DX: F10.229 Alcohol dependence with intoxication, unspecified (principal); R53.1 Weakness; I10 Essential (primary) hypertension; E78.00 Pure hypercholesterolemia, unspecified; F17.210 Nicotine dependence, cigarettes, uncomplicated; Y90.6 Blood alcohol level of 120-199 mg/100 ml
CPT/HCPCS: 36415; 70450; 71045; 80053; 80320; 85025; 85610; 93005; 96360; 96361; 99285; J7030; G0480

== ENCOUNTER 2021-02-15 02:44 | Emergency (ER) | payer MEDICAID ==
[~2021-02-15] VITALS: Ht 177.8 cm; Wt 105.0 kg
[2021-02-15 03:37] LABS: BASOPHILS % 0.3 % (0.0-2.0); EOSINOPHILS % 0.4 % (0.0-5.0); HEMATOCRIT. 38.5 % (42.0-52.0); HEMOGLOBIN. 12.8 g/dL (14.0-18.0); LYMPHOCYTES % 24.1 % (20.0-50.0); MEAN CORPUSCULAR HEMOGLOBIN 28.6 pg (28.0-32.0); MEAN CORPUSCULAR VOLUME 85.7 fL (80.0-94.0); MEAN PLATELET VOLUME 7.5 fl (7.4-10.4); MONOCYTES % 7.5 % (2.0-8.0); NEUTROPHILS % 67.7 % (40.0-76.0); PLATELET 264 x1000/uL (130-400); RED BLOOD CELL COUNT 4.49 mill/uL (4.7-6.1); RED CELL DISTRIBUTION WIDTH 17.8 % (11.6-14.6)
[2021-02-15 03:40] LABS: CHLORIDE 109 mEq/L (98-107)
[2021-02-15 04:00] VITALS: BP 162/97
== END 2021-02-15 04:11 | disposition home or self-care (01) ==
LOC: ER 02:44
DX: R19.7 Diarrhea, unspecified (principal); I10 Essential (primary) hypertension
CPT/HCPCS: 36415; 80053; 85025; 93005; 99284

== ENCOUNTER 2021-07-20 01:38 | Emergency (ER) | payer MEDICAID ==
[~2021-07-20] VITALS: Ht 185.4 cm; Wt 88.0 kg
[2021-07-20 01:50] VITALS: BP 157/94
[2021-07-20] MEDS ORDERED: IMOD MT (01:56)
[2021-07-20] MEDS ORDERED: LOPERAMIDE HCL 2MG CAPSULE PO PRN (02:00)
== END 2021-07-20 03:09 | disposition home or self-care (01) ==
LOC: ER 02:00
DX: R19.7 Diarrhea, unspecified (principal); I10 Essential (primary) hypertension
CPT/HCPCS: 93005; 99283

== ENCOUNTER 2021-08-22 20:22 | Inpatient (IN) | payer MEDICAID ==
[~2021-08-22] VITALS: Ht 177.8 cm; Wt 108.9 kg
[~2021-08-22 20:22] MED LIST: IMOD MT
[2021-08-22 21:38] LABS: BASOPHILS % 1.1 % (0.0-2.0); EOSINOPHILS % 0.6 % (0.0-5.0); HEMATOCRIT. 32.8 % (42.0-52.0); HEMOGLOBIN. 10.9 g/dL (14.0-18.0); MEAN CORPUSCULAR HEMOGLOBIN 26.3 pg (28.0-32.0); MEAN CORPUSCULAR VOLUME 79.3 fL (80.0-94.0); MEAN PLATELET VOLUME 7.2 fl (7.4-10.4); MONOCYTES % 5.9 % (2.0-8.0); NEUTROPHILS % 75.4 % (40.0-76.0); PLATELET 287 x1000/uL (130-400); RED BLOOD CELL COUNT 4.13 mill/uL (4.7-6.1); RED CELL DISTRIBUTION WIDTH 18.4 % (11.6-14.6)
[2021-08-22 21:44] LABS: CHLORIDE 111 mEq/L (98-107)
[2021-08-22 21:49] LABS: ETHANOL BLOOD < 10 mg/dL
[2021-08-22] MEDS ORDERED: NITROGLYCERIN OINT 1GM/INCH UDPKT TD NR (22:30)
[2021-08-22] MEDS ORDERED: FUROSEMIDE 40MG/4ML VIAL IV NR (22:30)
[2021-08-22] MEDS ORDERED: ASPIRIN 81MG TABLET PO NR (22:30)
[2021-08-22] MEDS ORDERED: MORPHINE SULFATE 4 MG/ML CPJ (NOT FOR IM USE) IV ONE (23:00)
[2021-08-23 03:20] LABS: *AMPHETAMINES SCREEN URINE NEGATIVE (NEGATIVE); *BARBITURATES SCREEN URINE NEGATIVE (NEGATIVE); *BENZODIAZEPINES SCREEN URINE NEGATIVE (NEGATIVE); *COCAINE SCREEN URINE NEGATIVE (NEGATIVE)
[2021-08-23 03:21] LABS: CANNABINOID URINE SCREEN NEGATIVE (NEGATIVE); METHADONE URINE SCREEN NEGATIVE (NEGATIVE); OPIATES URINE SCREEN PRESUMTIVE POSITIVE (NEGATIVE); PHENCYCLIDINE URINE SCREEN PRESUMTIVE POSITIVE (NEGATIVE)
[2021-08-23 03:37] VITALS: BP 134/88
[2021-08-23] MEDS ORDERED: FURO-152 PO (05:22)
[2021-08-23] MEDS ORDERED: LIDO700A30 TP (05:24)
[2021-08-23] MEDS ORDERED: AMLO2.5T45 MT (05:25)
[2021-08-23] MEDS ORDERED: HYDROCODONE/ACETAMINOPHEN 5/325MG TABLET PO PRN (06:00)
[2021-08-23] MEDS ORDERED: NALOXONE HCL 0.4MG/ML VIAL IV PRN (06:15)
[2021-08-23 08:00] VITALS: BP 139/104
[2021-08-23] MEDS ORDERED: CARVEDILOL 3.125 MG TABLET PO SCH (09:00)
[2021-08-23] MEDS ORDERED: LISINOPRIL 20MG TABLET PO SCH (09:00)
[2021-08-23] MEDS: ENOXAPARIN 30MG/0.3ML SYR SUBCUT SCH ×2 (09:03→21:24)
[2021-08-23] MEDS: FUROSEMIDE 40MG/4ML VIAL IVP SCH ×2 (09:03→21:23)
[2021-08-23] MEDS: ASPIRIN 81MG TABLET PO SCH (09:03)
[2021-08-23 12:00] VITALS: BP 140/96
[2021-08-23] MEDS: GUAIFENESIN-DM 200MG-20MG/10ML UDC PO PRN ×2 (13:46→20:22)
[2021-08-23] MEDS: LEVOFLOXACIN 500MG PREMIX 100 ML IV SCH (15:26)
[2021-08-23 16:00] VITALS: BP 133/95
[2021-08-23 20:00] VITALS: BP 138/100
[2021-08-23] MEDS: CARVEDILOL 12.5MG TABLET PO SCH (21:24)
[2021-08-24] VITALS: BP 118/94
[2021-08-24 04:00] VITALS: BP 118/74
[2021-08-24] MEDS: GUAIFENESIN-DM 200MG-20MG/10ML UDC PO PRN ×3 (04:55→17:50)
[2021-08-24 05:58] LABS: CHLORIDE 108 mEq/L (98-107)
[2021-08-24 08:00] VITALS: BP 100/76
[2021-08-24] MEDS: FUROSEMIDE 40MG/4ML VIAL IVP SCH ×2 (08:29→21:32)
[2021-08-24] MEDS: ASPIRIN 81MG TABLET PO SCH (08:30)
[2021-08-24] MEDS: ENOXAPARIN 30MG/0.3ML SYR SUBCUT SCH ×2 (08:32→21:35)
[2021-08-24] MEDS: CARVEDILOL 12.5MG TABLET PO SCH ×2 (09:00→21:35)
[2021-08-24] MEDS: LOSARTAN POTASSIUM 25 MG TABLET PO SCH (09:00)
[2021-08-24 12:00] VITALS: BP 139/105
[2021-08-24] MEDS: LEVOFLOXACIN 500MG PREMIX 100 ML IV SCH (15:09)
[2021-08-24 16:00] VITALS: BP 136/98
[2021-08-24] MEDS ORDERED: ACETAMINOPHEN 325MG TABLET PO PRN (17:30)
[2021-08-24 20:00] VITALS: BP 123/86
[2021-08-24] MEDS: IPRATROPIUM/ALBUTEROL 0.5-3(2.5)MG/3ML NEB HHN PRN (23:03)
[2021-08-25] VITALS: BP 115/72
[2021-08-25] MEDS: IPRATROPIUM/ALBUTEROL 0.5-3(2.5)MG/3ML NEB HHN PRN ×3 (01:08→21:34)
[2021-08-25 04:00] VITALS: BP 105/70
[2021-08-25 08:00] VITALS: BP 126/96
[2021-08-25] MEDS: CARVEDILOL 12.5MG TABLET PO SCH ×2 (08:44→21:39)
[2021-08-25] MEDS: LOSARTAN POTASSIUM 25 MG TABLET PO SCH (08:44)
[2021-08-25] MEDS: ASPIRIN 81MG TABLET PO SCH (08:44)
[2021-08-25] MEDS: ENOXAPARIN 30MG/0.3ML SYR SUBCUT SCH ×2 (08:45→21:38)
[2021-08-25] MEDS: FUROSEMIDE 40MG/4ML VIAL IVP SCH ×2 (08:46→20:52)
[2021-08-25 12:00] VITALS: BP 105/79
[2021-08-25 16:00] VITALS: BP 111/84
[2021-08-25] MEDS: LEVOFLOXACIN 500MG PREMIX 100 ML IV SCH (16:14)
[2021-08-25 20:00] VITALS: BP 111/69
[2021-08-26] VITALS: BP 105/73
[2021-08-26 04:00] VITALS: BP 105/71
[2021-08-26 08:00] VITALS: BP 114/77
[2021-08-26] MEDS ORDERED: LOSARTAN POTASSIUM 50 MG TABLET PO SCH (09:00)
[2021-08-26] MEDS: ASPIRIN 81MG TABLET PO SCH (09:38)
[2021-08-26] MEDS: FUROSEMIDE 40MG/4ML VIAL IVP SCH (09:38)
[2021-08-26] MEDS: CARVEDILOL 12.5MG TABLET PO SCH (09:39)
[2021-08-26] MEDS: GUAIFENESIN-DM 200MG-20MG/10ML UDC PO PRN (09:40)
[2021-08-26] MEDS: ENOXAPARIN 30MG/0.3ML SYR SUBCUT SCH (09:40)
[2021-08-26 12:00] VITALS: BP 114/77
[2021-08-26] MEDS ORDERED: COR12 PO (13:54)
[2021-08-26] MEDS ORDERED: LOSA50TA3 PO (13:54)
[2021-08-26] MEDS ORDERED: FURO-152 PO (13:54)
[2021-08-26] MEDS: LEVOFLOXACIN 500MG PREMIX 100 ML IV SCH (14:08)
[2021-08-26 14:42] VITALS: BP 114/77
[2021-08-27] MEDS ORDERED: LEVOFLOXACIN 500MG TABLET PO SCH (11:00)
== END 2021-08-26 15:50 | disposition home or self-care (01) | DRG 194 ==
LOC: ER 20:22 → MICUSO 23:15 → EDBEDREQ 23:24 → EDBEDREQTM 23:24 → 8WST 08-23 02:28
PROVIDERS: ADMIT Internal Medicine; ATTEND Internal Medicine
DX: I11.0 Hypertensive heart disease with heart failure (principal); J96.00 Acute respiratory failure, unspecified whether with hypoxia or hypercapnia; E44.0 Moderate protein-calorie malnutrition; I50.23 Acute on chronic systolic (congestive) heart failure; I27.20 Pulmonary hypertension, unspecified; I42.9 Cardiomyopathy, unspecified; E87.8 Other disorders of electrolyte and fluid balance, not elsewhere classified; D64.9 Anemia, unspecified; E66.9 Obesity, unspecified; F16.90 Hallucinogen use, unspecified, uncomplicated; F17.210 Nicotine dependence, cigarettes, uncomplicated; Z20.822 Contact with and (suspected) exposure to COVID-19; R07.89 Other chest pain; J44.9 Chronic obstructive pulmonary disease, unspecified; F10.10 Alcohol abuse, uncomplicated; Z86.16 Personal history of COVID-19; Z68.34 Body mass index [BMI] 34.0-34.9, adult; Z79.899 Other long term (current) drug therapy; Z79.82 Long term (current) use of aspirin; Z71.3 Dietary counseling and surveillance; Z71.51 Drug abuse counseling and surveillance of drug abuser
CPT/HCPCS: 36415; 71045; 80048; 80053; 80305; 80320; 83880; 84484; 85025; 87426; 93005; 93306; 94640; 97161; 99285; J1650; J1940; J1956; J2270; G0480

== ENCOUNTER 2022-10-23 01:48 | Emergency (ER) | payer MEDICAID ==
[~2022-10-23] VITALS: Ht 172.7 cm; Wt 84.0 kg
[~2022-10-23 01:48] MED LIST changes: +BENZ1LOZ73 MT; +BO1 TP; +COR3 PO; +FAMO20TA8 MT; +FURO-152 PO; +IBUP-2028 PO; -IMOD MT; +LIDO700A30 TP; +LIDOCAINE 2% TOP; +LOSA25TA3 PO; +POLY17PO3 PO; +SENN1TAB35 PO; +TOPUD PO
[2022-10-23 02:16] VITALS: BP 161/99
== END 2022-10-23 09:14 | disposition home or self-care (01) ==
LOC: ER 01:48
DX: R06.00 Dyspnea, unspecified (principal); Z79.899 Other long term (current) drug therapy
CPT/HCPCS: 99281

== ENCOUNTER 2022-11-23 00:10 | Emergency (ER) | payer MEDICAID ==
[~2022-11-23] VITALS: Ht 177.8 cm; Wt 100.0 kg
[2022-11-23 00:18] VITALS: BP 145/93
[2022-11-23 08:53] LABS: BASOPHILS % 0.3 % (0.0-2.0); EOSINOPHILS % 0.7 % (0.0-5.0); HEMATOCRIT. 38.9 % (42.0-52.0); HEMOGLOBIN. 13.2 g/dL (14.0-18.0); LYMPHOCYTES % 11.7 % (20.0-50.0); MEAN CORPUSCULAR HEMOGLOBIN 29.5 pg (28.0-32.0); MEAN CORPUSCULAR VOLUME 87.2 fL (80.0-94.0); MONOCYTES % 6.9 % (2.0-8.0); NEUTROPHILS % 80.4 % (40.0-76.0); PLATELET 249 x1000/uL (130-400); RED BLOOD CELL COUNT 4.46 mill/uL (4.7-6.1); RED CELL DISTRIBUTION WIDTH 15.2 % (11.6-14.6)
[2022-11-23 08:57] LABS: CHLORIDE 107 mEq/L (98-107)
[2022-11-23 09:08] LABS: ETHANOL BLOOD < 10 mg/dL
[2022-11-23] MEDS ORDERED: BENZ200C52 MT (10:51)
== END 2022-11-23 13:19 | disposition home or self-care (01) ==
LOC: ER 00:10
DX: R06.00 Dyspnea, unspecified (principal); I50.9 Heart failure, unspecified; Z79.899 Other long term (current) drug therapy
CPT/HCPCS: 36415; 71045; 80053; 80320; 84484; 85025; 93005; 99285; Z7610; G0480

== ENCOUNTER 2023-01-09 23:49 | Emergency (ER) | payer MEDICAID ==
[~2023-01-09] VITALS: Ht 177.8 cm; Wt 96.7 kg
[~2023-01-09 23:49] MED LIST changes: +BENZ200C52 MT
[2023-01-10] MEDS ORDERED: FUROSEMIDE 20MG TABLET PO ONE (01:30)
[2023-01-10] MEDS: FUROSEMIDE 20MG TABLET PO NR ×2 (01:47→01:48)
[2023-01-10 04:23] LABS: BASOPHILS % 0.8 % (0.0-2.0); EOSINOPHILS % 1.3 % (0.0-5.0); HEMATOCRIT. 36.9 % (42.0-52.0); HEMOGLOBIN. 12.7 g/dL (14.0-18.0); LYMPHOCYTES % 25.3 % (20.0-50.0); MEAN CORPUSCULAR HEMOGLOBIN 28.8 pg (28.0-32.0); MEAN CORPUSCULAR VOLUME 83.9 fL (80.0-94.0); MEAN PLATELET VOLUME 7.4 fl (7.4-10.4); MONOCYTES % 8.6 % (2.0-8.0); PLATELET 320 x1000/uL (130-400); RED CELL DISTRIBUTION WIDTH 15.8 % (11.6-14.6)
[2023-01-10 04:37] LABS: CHLORIDE 108 mEq/L (98-107)
[2023-01-10 04:46] LABS: ETHANOL BLOOD < 10 mg/dL
[2023-01-10] MEDS ORDERED: VISCOUS LIDOCAINE 2% 15 ML UDC PO ONE (05:15)
[2023-01-10] MEDS ORDERED: MAGNESIUM/ALUMINUM HYDROXIDE/SIMETHICONE 30ML UDC PO ONE (05:15)
[2023-01-10] MEDS ORDERED: DOCU100T MT (05:18)
[2023-01-10] MEDS ORDERED: MAG355OR21 MT (05:18)
[2023-01-10] MEDS ORDERED: FURO20TA4 MT (05:18)
[2023-01-10] MEDS ORDERED: TOPUD MT (05:25)
[2023-01-10] MEDS ORDERED: ACETAMINOPHEN 325MG TABLET PO ONE (05:30)
[2023-01-10 05:50] VITALS: BP 126/81
== END 2023-01-10 06:27 | disposition home or self-care (01) ==
LOC: ER 23:49
DX: R60.0 Localized edema (principal); Z79.899 Other long term (current) drug therapy
CPT/HCPCS: 36415; 71045; 80053; 80320; 83880; 84484; 85025; 93005; 99285; G0480

== ENCOUNTER 2023-05-02 02:14 | Emergency (ER) | payer MEDICAID ==
[~2023-05-02] VITALS: Ht 177.8 cm; Wt 103.0 kg
[~2023-05-02 02:14] MED LIST changes: +DOCU100T MT; +FURO20TA4 MT; +MAG355OR21 MT; +TOPUD MT
[2023-05-02 02:27] VITALS: O2SAT 98
[2023-05-02 03:35] LABS: BASOPHILS % 0.5 % (0.0-2.0); EOSINOPHILS % 2.4 % (0.0-5.0); HEMATOCRIT. 36.7 % (42.0-52.0); HEMOGLOBIN. 12.9 g/dL (14.0-18.0); LYMPHOCYTES % 18.4 % (20.0-50.0); MEAN CORPUSCULAR HEMOGLOBIN 29.3 pg (28.0-32.0); MEAN CORPUSCULAR VOLUME 83.7 fL (80.0-94.0); MEAN PLATELET VOLUME 7.4 fl (7.4-10.4); MONOCYTES % 8.8 % (2.0-8.0); NEUTROPHILS % 69.9 % (40.0-76.0); PLATELET 287 x1000/uL (130-400); RED BLOOD CELL COUNT 4.39 mill/uL (4.7-6.1); RED CELL DISTRIBUTION WIDTH 20.3 % (11.6-14.6)
[2023-05-02 03:45] LABS: CHLORIDE 108 mEq/L (98-107)
[2023-05-02] MEDS ORDERED: ENALAPRIL 2.5MG/2ML VIAL 2ML IV ONE (06:30)
[2023-05-02] MEDS ORDERED: FUROSEMIDE 40MG/4ML VIAL IVP ONE (06:30)
[2023-05-02] MEDS ORDERED: ENALAPRIL 1.25MG/ML VIAL 1ML IV NR (07:00)
[2023-05-02] MEDS ORDERED: MAGNESIUM/ALUMINUM HYDROXIDE/SIMETHICONE 30ML UDC PO PRN (09:15)
[2023-05-02] MEDS ORDERED: KETOROLAC 15MG/ML VIAL IV PRN (09:15)
[2023-05-02] MEDS ORDERED: ACETAMINOPHEN 325MG TABLET PO PRN ×2 (09:15)
[2023-05-02] MEDS ORDERED: ONDANSETRON HCL 4MG/2ML INJ IV PRN (09:15)
[2023-05-02] MEDS ORDERED: NITROGLYCERIN 0.4MG TABLET SL SL PRN (09:15)
[2023-05-02] MEDS ORDERED: IPRATROPIUM/ALBUTEROL 0.5-3(2.5)MG/3ML NEB NEB PRN (09:15)
[2023-05-02] MEDS ORDERED: GUAIFENESIN 200MG/10ML SUGAR FREE UDC PO PRN (09:15)
[2023-05-02] MEDS ORDERED: CLONIDINE 0.1MG TABLET PO PRN (09:15)
[2023-05-02] MEDS ORDERED: DOCUSATE SODIUM 100MG CAPSULE PO PRN (09:15)
[2023-05-02] MEDS ORDERED: LOSARTAN POTASSIUM 50 MG TABLET PO SCH (09:15)
[2023-05-02] MEDS ORDERED: ENOXAPARIN 30MG/0.3ML SYR SUBCUT SCH (09:30)
[2023-05-02 10:10] LABS: ETHANOL BLOOD < 10 mg/dL (-10); HDL CHOLESTEROL 54 mg/dL (40-59); LDL CHOLESTEROL 92 mg/dL (5-100); T4 FREE 1.03 ng/dL (0.76-1.46); TOTAL IRON BINDING CAPACITY 412 ug/dL (250-450)
[2023-05-02 10:31] LABS: VITAMIN B12 SERUM 512 pg/mL (211-911)
[2023-05-02 11:40] VITALS: BP 152/96; PULSE 101; RESP 14; TEMP 98.3
[2023-05-02] MEDS ORDERED: FUROSEMIDE 40MG/4ML VIAL IVP SCH (21:00)
[2023-05-02] MEDS ORDERED: ZOLPIDEM TARTRATE 5MG TABLET PO PRN (21:00)
[2023-05-02] MEDS ORDERED: SPIRONOLACTONE 25MG TABLET PO SCH (21:00)
[2023-05-02] MEDS ORDERED: FAMOTIDINE 20MG TABLET PO SCH (21:00)
[2023-05-03] MEDS ORDERED: ASPIRIN 325MG EC TABLET PO SCH (09:00)
== END 2023-05-02 13:22 | disposition admitted as inpatient to this hospital (09) ==
LOC: ER 02:32 → CANBEDREQ 12:52 → ER 13:22
DX: I11.0 Hypertensive heart disease with heart failure (principal); I50.9 Heart failure, unspecified; Z79.899 Other long term (current) drug therapy
CPT/HCPCS: 80061; 80053; 80320; 82607; 82746; 83880; 84439; 83540; 83550; 84443; 85025; 84484; 36415; 71045; 93970; 93005; 96374; 96375; 99285; J3490 ×2; J1940; Z7610 ×4; G0480

== ENCOUNTER 2023-10-08 23:40 | Emergency (ER) | payer MEDICAID ==
[~2023-10-08] VITALS: Ht 172.7 cm; Wt 82.0 kg
[~2023-10-08 23:40] MED LIST changes: +LOSA-412 PO; -LOSA25TA3 PO
[2023-10-09 00:11] VITALS: BP 132/95; PULSE 96; RESP 16; TEMP 98.4; O2SAT 100
[2023-10-09] MEDS ORDERED: FUROSEMIDE 100MG/10ML VIAL IM ONE (02:45)
[2023-10-09 03:30] LABS: BASOPHILS % 0.6 % (0.0-2.0); EOSINOPHILS % 1.3 % (0.0-5.0); HEMATOCRIT. 40.6 % (42.0-52.0); MEAN CORPUSCULAR HEMOGLOBIN 29.3 pg (28.0-32.0); MEAN CORPUSCULAR HGB CONC 34.4 g/dL (31.0-37.0); MEAN PLATELET VOLUME 7.2 fl (7.4-10.4); MONOCYTES % 8.6 % (2.0-8.0); NEUTROPHILS % 70.5 % (40.0-76.0); PLATELET 254 x1000/uL (130-400); RED BLOOD CELL COUNT 4.78 mill/uL (4.7-6.1); RED CELL DISTRIBUTION WIDTH 14.3 % (11.6-14.6); WHITE BLOOD COUNT 7.5 x1000/uL (4.5-11.0)
[2023-10-09] MEDS ORDERED: IBUP-2028 MT (03:58)
[2023-10-09] MEDS ORDERED: FURO80TA87 MT (03:58)
[2023-10-09 03:59] LABS: ALANINE AMINOTRANSFERASE 16 IU/L (10-49); ALBUMIN 4.3 g/dL (3.2-4.8); ASPARTATE AMINOTRANSFERASE 19 IU/L (<34); BILIRUBIN TOTAL 0.6 mg/dL (0.1-1.0); CALCIUM 9.3 mg/dL (8.7-10.4); CARBON DIOXIDE 31 mEq/L (21-32); CHLORIDE 103 mEq/L (98-107); CREATININE 1.4 mg/dL (0.6-1.3); GLUCOSE 100 mg/dL (70-105); POTASSIUM 3.9 mEq/L (3.5-5.1); PROTEIN TOTAL 7.5 g/dL (6.0-8.3); SODIUM 139 mEq/L (136-145); TROPONIN I HIGH SENSITIVITY 51 ng/L (3.0-53); UREA NITROGEN BLOOD 17 mg/dL (9-23)
== END 2023-10-09 04:02 | disposition home or self-care (01) ==
LOC: ER 23:40
DX: S80.11XA Contusion of right lower leg, initial encounter (principal); R60.9 Edema, unspecified; M25.512 Pain in left shoulder; Z59.00 Homelessness unspecified; X58.XXXA Exposure to other specified factors, initial encounter; Y93.89 Activity, other specified; Y92.89 Other specified places as the place of occurrence of the external cause; Y99.8 Other external cause status
CPT/HCPCS: 99285; 80053; 85025; 84484; 36415; 73551; 71045; 72170; 73030; 73590; 93970; 96372; J1940; Z7610 ×2

== ENCOUNTER 2023-10-26 00:52 | Emergency (ER) | payer MEDICAID ==
[~2023-10-26] VITALS: Ht 177.8 cm; Wt 101.0 kg
[~2023-10-26 00:52] MED LIST changes: +FURO80TA87 MT; +IBUP-2028 MT
[2023-10-26 01:04] VITALS: BP 127/98; PULSE 96; RESP 14; TEMP 99; O2SAT 95
[2023-10-26 01:31] LABS: BASOPHILS % 0.4 % (0.0-2.0); HEMATOCRIT. 39.1 % (42.0-52.0); LYMPHOCYTES % 19.8 % (20.0-50.0); MEAN CORPUSCULAR HEMOGLOBIN 28.8 pg (28.0-32.0); MEAN CORPUSCULAR HGB CONC 33.2 g/dL (31.0-37.0); MEAN CORPUSCULAR VOLUME 86.6 fL (80.0-94.0); MEAN PLATELET VOLUME 7.4 fl (7.4-10.4); MONOCYTES % 10.6 % (2.0-8.0); NEUTROPHILS % 67.2 % (40.0-76.0); PLATELET 199 x1000/uL (130-400); RED BLOOD CELL COUNT 4.51 mill/uL (4.7-6.1); RED CELL DISTRIBUTION WIDTH 14.2 % (11.6-14.6)
[2023-10-26 01:45] LABS: ALANINE AMINOTRANSFERASE 10 IU/L (10-49); ALBUMIN 3.9 g/dL (3.2-4.8); ASPARTATE AMINOTRANSFERASE 20 IU/L (<34); BILIRUBIN TOTAL 0.4 mg/dL (0.1-1.0); CALCIUM 8.8 mg/dL (8.7-10.4); CARBON DIOXIDE 25 mEq/L (21-32); CHLORIDE 103 mEq/L (98-107); CREATININE 1.1 mg/dL (0.6-1.3); GLUCOSE 99 mg/dL (70-105); POTASSIUM 4.2 mEq/L (3.5-5.1); SODIUM 136 mEq/L (136-145); UREA NITROGEN BLOOD 13 mg/dL (9-23)
[2023-10-26] MEDS ORDERED: KETOROLAC 15MG/ML VIAL IM ONE (03:30)
[2023-10-26 04:44] LABS: CLARITY URINE CLEAR (CLEAR); COLOR URINE YELLOW (YELLOW); GLUCOSE URINE NEGATIVE (NEGATIVE); KETONES URINE NEGATIVE (NEGATIVE); LEUKOCYTE ESTERASE URINE NEGATIVE (NEGATIVE); NITRITE URINE NEGATIVE (NEGATIVE); OCCULT BLOOD URINE NEGATIVE (NEGATIVE); PROTEIN URINE NEGATIVE (NEGATIVE); SPECIFIC GRAVITY URINE 1.013 (1.005-1.030); UROBILINOGEN URINE 0.2 E.U./dL (0.2-1.0)
== END 2023-10-26 06:01 | disposition home or self-care (01) ==
LOC: ER 01:05
DX: K46.9 Unspecified abdominal hernia without obstruction or gangrene (principal); Z79.899 Other long term (current) drug therapy
CPT/HCPCS: 99284; 74176; 80053; 81003; 83690; 85025; 36415; J1885

== ENCOUNTER 2023-11-19 02:38 | Emergency (ER) | payer MEDICAID ==
[~2023-11-19] VITALS: Ht 172.7 cm; Wt 99.2 kg
[2023-11-19 03:23] VITALS: TEMP 98.7; O2SAT 98
[2023-11-19 03:24] VITALS: BP 144/91; PULSE 85; RESP 18
[2023-11-19 03:32] LABS: BASOPHILS % 0.5 % (0.0-2.0); EOSINOPHILS % 1.4 % (0.0-5.0); HEMATOCRIT. 38.1 % (42.0-52.0); HEMOGLOBIN. 13.1 g/dL (14.0-18.0); MEAN CORPUSCULAR HEMOGLOBIN 29.5 pg (28.0-32.0); MEAN CORPUSCULAR HGB CONC 34.3 g/dL (31.0-37.0); MEAN CORPUSCULAR VOLUME 85.9 fL (80.0-94.0); MEAN PLATELET VOLUME 7.9 fl (7.4-10.4); MONOCYTES % 8.1 % (2.0-8.0); PLATELET 188 x1000/uL (130-400); RED BLOOD CELL COUNT 4.43 mill/uL (4.7-6.1); WHITE BLOOD COUNT 7.6 x1000/uL (4.5-11.0)
[2023-11-19 03:40] LABS: DIFFERENTIAL COMMENT 1
[2023-11-19 03:46] LABS: INR 0.9; PROTHROMBIN TIME 10.5 sec (9.6-11.0)
[2023-11-19 03:47] LABS: ALANINE AMINOTRANSFERASE 18 IU/L (10-49); ALBUMIN 4.2 g/dL (3.2-4.8); ASPARTATE AMINOTRANSFERASE 22 IU/L (<34); BILIRUBIN TOTAL 0.5 mg/dL (0.1-1.0); CALCIUM 9.1 mg/dL (8.7-10.4); CARBON DIOXIDE 29 mEq/L (21-32); CHLORIDE 110 mEq/L (98-107); CREATININE 1.1 mg/dL (0.6-1.3); GLUCOSE 102 mg/dL (70-105); PROTEIN TOTAL 6.8 g/dL (6.0-8.3); SODIUM 144 mEq/L (136-145); UREA NITROGEN BLOOD 18 mg/dL (9-23)
[2023-11-19 03:55] LABS: ETHANOL BLOOD < 10 mg/dL (<10)
[2023-11-19 04:02] LABS: HCG SCREEN NEGATIVE
[2023-11-19] MEDS ORDERED: SENN-215 MT (13:19)
== END 2023-11-19 14:13 | disposition home or self-care (01) ==
LOC: ER 02:38
DX: R10.9 Unspecified abdominal pain (principal)
CPT/HCPCS: 36415; 80053; 80320; 84703; 85025; 99283; G0480

== ENCOUNTER 2025-02-01 15:24 | Emergency (ER) | payer MEDICAID ==
[~2025-02-01] VITALS: Ht 180.3 cm; Wt 105.0 kg
[~2025-02-01 15:24] MED LIST changes: -BENZ1LOZ73 MT; -BENZ200C52 MT; -BO1 TP; -DOCU100T MT; -FAMO20TA8 MT; -FURO-152 PO; -FURO20TA4 MT; -FURO80TA87 MT; -IBUP-2028 MT; -IBUP-2028 PO; -LIDO700A30 TP; -LIDOCAINE 2% TOP; -MAG355OR21 MT; -POLY17PO3 PO; -SENN1TAB35 PO; -TOPUD MT; -TOPUD PO
[2025-02-01 15:27] VITALS: O2SAT 97
[2025-02-01 15:43] VITALS: BP 134/81; PULSE 103; RESP 20; TEMP 36.8; O2SAT 97
[2025-02-01] MEDS: ACETAMINOPHEN 325MG TABLET PO STA (17:53)
[2025-02-01] MEDS ORDERED: IBUP-2029 MT (18:42)
[2025-02-01] MEDS ORDERED: BENZ200C52 MT (18:42)
== END 2025-02-01 19:11 | disposition home or self-care (01) ==
LOC: ER 15:24
DX: R05.9 Cough, unspecified (principal); M62.838 Other muscle spasm; I11.0 Hypertensive heart disease with heart failure; I50.9 Heart failure, unspecified; F20.9 Schizophrenia, unspecified; Z79.899 Other long term (current) drug therapy
CPT/HCPCS: 71045; 99283

== ENCOUNTER 2025-07-15 11:32 | Inpatient (IN) | payer OTHER ==
[~2025-07-15] VITALS: Ht 177.8 cm; Wt 119.7 kg
[~2025-07-15 11:32] MED LIST changes: +ASPI-1406 PO; +EMPA10TA PO; +FAMO20TA8 PO; +FOLI-43 PO; +IBUP-1455 MT; +LIP40 PO; -LOSA-412 PO; +LOSA25TA26 PO; +OLAN5TAB74 PO; +SPIR25TA6 PO; +THIA100T72 PO
[2025-07-15 11:44] VITALS: O2SAT 95
[2025-07-15 13:26] LABS: BASOPHILS % 0.5 % (0.0-2.0); EOSINOPHILS % 1.3 % (0.0-5.0); HEMATOCRIT. 40.0 % (42.0-52.0); HEMOGLOBIN. 13.8 g/dL (14.0-18.0); LYMPHOCYTES % 21.8 % (20.0-50.0); MEAN PLATELET VOLUME 7.1 fl (7.4-10.4); MONOCYTES % 12.0 % (2.0-8.0); NEUTROPHILS % 64.4 % (40.0-76.0); PLATELET 230 x1000/uL (130-400); RED BLOOD CELL COUNT 4.70 mill/uL (4.7-6.1); RED CELL DISTRIBUTION WIDTH 16.4 % (11.6-14.6)
[2025-07-15 13:39] LABS: CREATININE 1.5 mg/dL (0.6-1.3); UREA NITROGEN BLOOD 14 mg/dL (9-23)
[2025-07-15] MEDS ORDERED: ONDANSETRON HCL 4MG/2ML INJ IV PRN (16:00)
[2025-07-15] MEDS: ENOXAPARIN 40MG/0.4ML SYR SUBCUT SCH (16:00)
[2025-07-15] MEDS ORDERED: MAGNESIUM/ALUMINUM HYDROXIDE/SIMETHICONE 30ML UDC PO PRN (16:00)
[2025-07-15] MEDS ORDERED: ZOLPIDEM TARTRATE 5MG TABLET PO PRN (16:00)
[2025-07-15] MEDS ORDERED: ACETAMINOPHEN 325MG TABLET PO PRN (16:00)
[2025-07-15 16:04] LABS: INFLUENZA TYPE A Presumptive Negative (Pres. Neg.)
[2025-07-15 16:05] LABS: INFLUENZA TYPE B Presumptive Negative (Pres. Neg.)
[2025-07-15 16:06] LABS: RESPIRATORY SYNCYTIAL VIRUS Not Detected (Not Detectd)
[2025-07-15] MEDS ORDERED: NALOXONE HCL 0.4MG/ML VIAL IV PRN (16:15)
[2025-07-15 18:25] LABS: CLARITY URINE CLEAR (CLEAR); COLOR URINE YELLOW (YELLOW); GLUCOSE URINE 2+ (NEGATIVE); KETONES URINE TRACE (NEGATIVE); LEUKOCYTE ESTERASE URINE NEGATIVE (NEGATIVE); NITRITE URINE NEGATIVE (NEGATIVE); OCCULT BLOOD URINE NEGATIVE (NEGATIVE); PH URINE 7.0 (4.5-8.0); PROTEIN URINE 1+ (NEGATIVE); SPECIFIC GRAVITY URINE 1.034 (1.005-1.030); UROBILINOGEN URINE 1.0 E.U./dL (0.2-1.0)
[2025-07-15 18:33] LABS: *AMPHETAMINES SCREEN URINE NEGATIVE (NEGATIVE); *BARBITURATES SCREEN URINE NEGATIVE (NEGATIVE); *BENZODIAZEPINES SCREEN URINE NEGATIVE (NEGATIVE); *COCAINE SCREEN URINE NEGATIVE (NEGATIVE); METHADONE URINE SCREEN NEGATIVE (NEGATIVE); OPIATES URINE SCREEN NEGATIVE (NEGATIVE)
[2025-07-15 18:34] LABS: CANNABINOID URINE SCREEN NEGATIVE (NEGATIVE); ECSTASY MDMA SCREEN URINE NEGATIVE (NEGATIVE); PHENCYCLIDINE URINE SCREEN PRESUMTIVE POSITIVE (NEGATIVE)
[2025-07-15 19:00] VITALS: BP 148/93; PULSE 90; RESP 18; TEMP 36.418
[2025-07-15 19:23] LABS: BACTERIA URINE NONE SEEN; MUCUS URINE TRACE /lpf (NONE/TRACE); RBC URINE NONE SEEN /hpf (0-2); SQUAMOUS EPITHELIAL CELL URINE RARE /lpf (RARE/1+); WBC URINE 0-2 /hpf (0-2)
[2025-07-15 20:00] VITALS: BP 148/93; PULSE 90; RESP 18; TEMP 36.4; O2SAT 93
[2025-07-15] MEDS: OLANZAPINE 5MG TABLET PO SCH (20:27)
[2025-07-15] MEDS: CARVEDILOL 3.125 MG TABLET PO SCH (20:29)
[2025-07-15] MEDS: ATORVASTATIN CALCIUM 40MG TABLET PO SCH (20:29)
[2025-07-15] MEDS: FAMOTIDINE 20MG TABLET PO SCH (20:29)
[2025-07-16] VITALS (8 sets, daily range): BP systolic 132–161; BP diastolic 75–103; PULSE 71–90; RESP 16–19; TEMP 36.2–36.7; O2SAT 93–99
[2025-07-16] MEDS: HYDROCODONE/ACETAMINOPHEN 5/325MG TABLET PO PRN (01:49)
[2025-07-16 02:30] LABS: TROPONIN I HIGH SENSITIVITY 67 ng/L (3.0-53)
[2025-07-16 07:35] LABS: BASOPHILS % 0.3 % (0.0-2.0); CREATININE 1.5 mg/dL (0.6-1.3); EOSINOPHILS % 1.2 % (0.0-5.0); HEMATOCRIT. 37.6 % (42.0-52.0); HEMOGLOBIN. 12.9 g/dL (14.0-18.0); LYMPHOCYTES % 20.0 % (20.0-50.0); MEAN PLATELET VOLUME 7.4 fl (7.4-10.4); MONOCYTES % 10.7 % (2.0-8.0); NEUTROPHILS % 67.8 % (40.0-76.0); PLATELET 184 x1000/uL (130-400); RED BLOOD CELL COUNT 4.36 mill/uL (4.7-6.1); RED CELL DISTRIBUTION WIDTH 16.2 % (11.6-14.6); UREA NITROGEN BLOOD 19 mg/dL (9-23)
[2025-07-16] MEDS: LOSARTAN 25 MG TABLET PO SCH (08:25)
[2025-07-16] MEDS: SPIRONOLACTONE 25MG TABLET PO SCH (08:25)
[2025-07-16] MEDS: FUROSEMIDE 40MG/4ML VIAL IVP SCH (08:25)
[2025-07-16] MEDS: FOLIC ACID 1MG TABLET PO SCH (08:25)
[2025-07-16] MEDS: ASPIRIN 81MG EC TABLET PO SCH (08:26)
[2025-07-16] MEDS: THIAMINE HCL 100MG TABLET PO SCH (08:26)
[2025-07-16] MEDS: CLONIDINE 0.1MG TABLET PO PRN (08:26)
[2025-07-16] MEDS: EMPAGLIFLOZIN 10MG TABLET PO SCH (08:26)
[2025-07-16 08:54] LABS: TROPONIN I HIGH SENSITIVITY 57 ng/L (3.0-53)
[2025-07-16] MEDS ORDERED: PANTOPRAZOLE SODIUM 40 MG/VIAL IV SCH (09:00)
== END 2025-07-16 21:00 | disposition short-term general hospital (02) | DRG 48 ==
LOC: ER 11:32 → 8WST 15:32 → EDBEDREQ 15:43 → EDBEDREQSVC 16:28
PROVIDERS: ADMIT Internal Medicine; ATTEND Internal Medicine
DX: E11.40 Type 2 diabetes mellitus with diabetic neuropathy, unspecified (principal); I50.23 Acute on chronic systolic (congestive) heart failure; I11.0 Hypertensive heart disease with heart failure; Z59.00 Homelessness unspecified; E78.5 Hyperlipidemia, unspecified; F16.10 Hallucinogen abuse, uncomplicated; F10.10 Alcohol abuse, uncomplicated; F20.9 Schizophrenia, unspecified; Z82.49 Family history of ischemic heart disease and other diseases of the circulatory system
CPT/HCPCS: 36415; 71045; 80048; 80305; 81003; 83880; 84443; 84484; 85025; 85379; 87420; 87426; 87804; 93005; 93970; 99285; A4606; J1938